=== PATIENT | female | born 2000 | race Caucasian/White ===

== ENCOUNTER → 2025-07-23 14:37 | Outpatient (BNVA) | payer OTHER, SELFPAY | PROVIDERS: PCP Family Medicine; Visit Provider Nurse Practitioner Women's Health | DX: N93.9 Abnormal uterine and vaginal bleeding, unspecified (principal); Z12.4 Encounter for screening for malignant neoplasm of cervix | CPT/HCPCS: 80053; 82728; 83036; 83540; 84146; 84403; 84439; 84443; 84481; 85025; 88175 ==

== ENCOUNTER → 2025-08-10 12:17 | Outpatient (BNVA) | payer OTHER, SELFPAY | PROVIDERS: PCP Family Medicine; Visit Provider Nurse Practitioner Women's Health | DX: R10.23 Pelvic and perineal pain bilateral (principal); N88.8 Other specified noninflammatory disorders of cervix uteri | CPT/HCPCS: 76830 ==